=== PATIENT | female | born 1990 | race American Indian/Alaskan Native ===

== ENCOUNTER 2018-10-10 16:51 | Emergency (ER) | payer SELFPAY ==
--- NOTE | 2018-10-10 17:14 | Emergency Department Report ---
Blank Doc - Documentation Documentation: this is a 28-year-old female that presents with nausea and dizziness. This initial assessment/diagnostic orders/clinical plan/treatment(s) is/are subject to change based on patient's health status, clinical progression and re- assessment by fellow clinical providers in the ED. Further treatment and workup at subsequent clinical providers discretion. Patient/guardians urged not to elope from the ED as their condition may be serious if not clinically assessed and managed. Initial orders include: 1- Patient sent to [facility] for further evaluation and treatment 2- UA
[2018-10-10 17:57] LABS: HCG Qualitative,Urine Negative (Negative)
[2018-10-10 18:02] LABS: Bilirubin,Urine NEG (Negative); Blood,Urine SM (Negative); Calcium Oxalate Crystals,Urine 3+; Color,Urine Yellow (Yellow); Mucus,Urine 1+ /HPF; Protein,Urine <15 mg/dL mg/dL (Negative); Urobilinogen,Urine < 2.0 mg/dL (<2.0)
[2018-10-10 19:24] LABS: Basophils # (Auto) 0.1 K/mm3 (0.0-0.1); Basophils % (Auto) 1.2 % (0.0-1.8); Eosinophils # (Auto) 0.1 K/mm3 (0.0-0.4); Eosinophils % (Auto) 1.2 % (0.0-4.3); Hematocrit 38.2 % (30.3-42.9); Hemoglobin 13.2 gm/dl (10.1-14.3); Lymphocytes # (Auto) 2.1 K/mm3 (1.2-5.4); Lymphocytes % (Auto) 47.1 % (13.4-35.0); Mean Corpuscular HGB Conc 34 % (30-34); Mean Corpuscular Volume 91 fl (79-97); Monocytes # (Auto) 0.5 K/mm3 (0.0-0.8); Monocytes % (Auto) 10.6 % (0.0-7.3); Platelet Count 202 K/mm3 (140-440); Red Cell Distribution Width 13.7 % (13.2-15.2)
--- NOTE | 2018-10-10 19:37 | XRay Report ---
. CHEST 2 VIEWS INDICATION / CLINICAL INFORMATION: cough COMPARISON: None available. FINDINGS: SUPPORT DEVICES: None. HEART / MEDIASTINUM: No significant abnormality. LUNGS / PLEURA: No significant pulmonary or pleural abnormality. .No pneumothorax. ADDITIONAL FINDINGS: No significant additional findings. IMPRESSION: 1. No acute findings. Signer Name: Keyur Naik MD Signed: 10/10/2018 7:32 PM Workstation Name: [id number]
[2018-10-10] MEDS ORDERED: NACL 0.9% 1000 ML 1,000 ML IV ONE (19:39)
[2018-10-10] MEDS ORDERED: ZOFRAN IV STA (19:42)
[2018-10-10 19:48] LABS: Alanine Aminotransferase 18 units/L (7-56); Albumin 3.7 g/dL (3.9-5); BUN/Creatinine Ratio 13; Blood Urea Nitrogen 10 mg/dL (7-17); Calcium 9.3 mg/dL (8.4-10.2); Hemolysis Index 20
--- NOTE | 2018-10-10 21:46 | Cat Scan Report ---
CT abdomen pelvis w con INDICATION: RUQ and RLQ abd pain, nausea vomiting abdomen pain since today. TECHNIQUE: All CT scans at this location are performed using CT dose reduction for ALARA by means of automated e xposure control. COMPARISON: None available. FINDINGS: Lung bases are clear. Liver, gallbladder, spleen, pancreas, kidneys and adrenals are negative. (Low-a ttenuation lesion in the lower pole of the left kidney is thought to represent benign cyst.) Abdomina l aorta is normal in size. No adenopathy. Pelvis Normal appendix seen. Uterus and ovaries are negative. Urinary bladder is unremarkable. No free fluid or inflammatory change. IUD in position. Incidentally noted is bilateral sacroiliitis, a finding sometimes associated with inflammatory bowel disease. IMPRESSION: 1. No definite acute abnormality. 2. Bilateral sacroiliitis, sometimes associated with inflammatory bowel disease. Suggest clinical cor relation. Signer Name: Chriss Valencia MD Signed: 10/10/2018 9:41 PM Workstation Name: [id number]
[2018-10-10 22:38] VITALS: BP 127/84
[2018-10-10] MEDS ORDERED: DELTASONE PO STA (22:43)
--- NOTE | 2018-10-11 03:12 | Emergency Department Report ---
ED General Adult HPI - General Chief complaint: Nausea/Vomiting/Diarrhea Stated complaint: NAUSEA/LIGHT HEADED Time Seen by Provider: 10/10/18 17:13 Source: patient Mode of arrival: Ambulatory Limitations: No Limitations - History of Present Illness Initial comments: 28-year-old female who progression from complaining of paresthesias episodes of nausea, vomiting and diarrhea. Associated with foreign travel, hematuria, hematemesis, hematochezia, fever, chills, sweats, chest pain or palpitations. -: Gradual Location: abdomen Radiation: non-radiation Severity scale (0 -10): 1 Quality: aching, dull Consistency: constant Improves with: none Worsens with: eating Associated Symptoms: nausea/vomiting. denies: chest pain, cough, headaches, loss of appetite, malaise, shortness of breath, syncope, weakness Treatments Prior to Arrival: none - Related Data Previous Rx's Medication Instructions Recorded Last Taken Type guaiFENesin/CODEINE [Robitussin AC] 5 ml PO Q8HR PRN #120 oral.liqd 10/10/18 Unknown Rx predniSONE [Deltasone] 50 mg PO QDAY #5 tab 10/10/18 Unknown Rx Allergies Allergy/AdvReac Type Severity Reaction Status Date / Time No Known Allergies Allergy Unverified 10/10/18 16:53 ED Review of Systems ROS: Stated complaint: NAUSEA/LIGHT HEADED Other details as noted in HPI Comment: All other systems reviewed and negative ED Past Medical Hx - Past Medical History Previous Medical History?: No - Surgical History Past Surgical History?: No - Social History Smoking Status: Never Smoker Substance Use Type: None - Medications Home Medications: Home Medications Medication Instructions Recorded Confirmed Last Taken Type guaiFENesin/CODEINE [Robitussin AC] 5 ml PO Q8HR PRN #120 oral.liqd 10/10/18 Unknown Rx predniSONE [Deltasone] 50 mg PO QDAY #5 tab 10/10/18 Unknown Rx ED Physical Exam - General Limitations: No Limitations General appearance: alert, in no apparent distress - Head Head exam: Present: atraumatic, normocephalic - Eye Eye exam: Present: normal appearance, PERRL, EOMI Pupils: Present: normal accommodation - ENT ENT exam: Present: normal exam, mucous membranes moist - Neck Neck exam: Present: normal inspection, full ROM - Respiratory Respiratory exam: Present: normal lung sounds bilaterally. Absent: respiratory distress, wheezes, rales, chest wall tenderness, accessory muscle use - Cardiovascular Cardiovascular Exam: Present: regular rate, normal rhythm. Absent: systolic murmur, diastolic murmur, rubs, gallop - GI/Abdominal GI/Abdominal exam: Present: soft, normal bowel sounds. Absent: tenderness, guarding, rebound, hyperactive bowel sounds, hypoactive bowel sounds, organomegaly, mass - Extremities Exam Extremities exam: Present: normal inspection - Back Exam Back exam: Present: normal inspection. Absent: CVA tenderness (R), CVA tenderness (L), paraspinal tenderness - Neurological Exam Neurological exam: Present: alert, oriented X3, CN II-XII intact, normal gait - Psychiatric Psychiatric exam: Present: normal affect, normal mood - Skin Skin exam: Present: warm, dry, intact, normal color. Absent: rash ED Course Vital Signs 10/10/18 10/10/18 17:15 22:37 Temperature 98.1 F 98.4 F Pulse Rate 58 L 64 Respiratory 18 14 Rate Blood Pressure 138/91 Blood Pressure 127/84 [Left] O2 Sat by Pulse 96 99 Oximetry ED Medical Decision Making - Lab Data Result diagrams: 10/10/18 19:11 10/10/18 19:11 - Radiology Data Radiology results: report reviewed (CT scan and chest x-ray shows no acute process with the exception of sacroiliitis) - Medical Decision Making 28-year-old female who was diarrhea and mild abdominal pain. Afebrile laboratory data was relatively benign. Her CT scan did show some sacroiliitis. Chest x-ray was also benign. She is resting comfortably, no acute distress. Tolerate oral. She abdominal symptoms and to return to the emergency department should symptoms worsen. Critical care attestation.: If time is entered above; I have spent that time in minutes in the direct care of this critically ill patient, excluding procedure time. ED Disposition Clinical Impression: Viral syndrome, Sacroiliac inflammation, Diarrhea Disposition: TO HOME OR SELFCARE Is pt being admited?: No Does the pt Need Aspirin: No Condition: Stable Instructions: Acute Diarrhea (ED), Sacroiliitis (ED), Viral Syndrome (ED) Prescriptions: predniSONE [Deltasone] 50 mg PO QDAY #5 tab guaiFENesin/CODEINE [Robitussin AC] 5 ml PO Q8HR PRN #120 oral.liqd PRN Reason: coryza Referrals: LINDA RAMIREZ MD [Primary Care Provider] - 3-5 Days Forms: Accompanied Note, Work/School Release Form(ED)
== END 2018-10-10 23:37 | disposition home or self-care (01) ==
LOC: ED 16:51
DX: R11.2 Nausea with vomiting, unspecified (principal); R19.7 Diarrhea, unspecified
CPT/HCPCS: 36415; 71046; 74177; 80053; 81001; 81025; 83690; 85025; 96361; 96374; 99284; J2405; J7030; J7512; Q9967